=== PATIENT | female | born 1970 | race Caucasian/White ===

== ENCOUNTER 2016-11-15 14:45 | Inpatient (IN) | payer OTHER ==
[~2016-11-15] VITALS: Ht 154.9 cm; Wt 88.8 kg
[~2016-11-15 14:45] MED LIST: AMLO5 PO; ASPI1TAB69 PO; ATOR1TAB18 PO; AZEL0.05 EACH EYE; AZEL0.055 EACH NARE; AZEL1SPR2 EACH NARE; CYCL5TAB PO; LEXA20TA PO; LORA-474 PO; MONT10TA2 PO; OMEP20TA PO; PLAV75TA29 PO; ROBA500T PO; VENTAER INH
[2016-11-15 15:00] VITALS: BP 118/85; PULSE 78; RESP 20; TEMP 97.6; O2SAT 100
--- NOTE | 2016-11-15 15:51 | PD ---
HPI Chief Complaint: Cold / Flu Symptoms Time Seen by Provider: 15:51 Travel History International Travel<30 days: No Contact w/Intl Traveler<30days: No Traveled to known affect area: No History of Present Illness HPI 46-year-old female with a history of hypertension, hyperlipidemia, asthma, CAD with stent 1 presents to the emergency department for evaluation of chest pain , body aches and nausea. The patient states that for the past week she's had intermittent midsternal chest pain that radiates to underneath her left axilla. States that the pain is aggravated with movement and exertion. Alleviated with rest. States there is some associated shortness of breath. States that the last several days she has also had some nausea, body aches and subjective fever and chills. Denies any lightheadedness, dizziness, vomiting, diarrhea, constipation, abdominal pain, cough. States that she saw her doctor last week and told him that she was having the symptoms and she has been scheduled for an outpatient nuclear stress test tomorrow. States that she came in today because she was feeling poorly overall and became concerned as her symptoms feel similar to the last time she had an NC. Numerical Control Tool Programmer is Dr. fisher. No other complaints. PFSH Past Medical History Asthma: Yes Depression: Yes Cardiovascular Problems: Yes Coronary Artery Disease: Yes Diminished Hearing: No GERD: Yes Hypertension: Yes Respiratory: Yes (ASTHMA) Influenza Vaccination: No ?: Not : 4 Para: 4 Miscarriage: 0 : 0 Ovarian Cysts: Yes Tubal Ligation: Yes (2000) Past Surgical History Abdominal Surgery: Yes (umbilical hernia repair, abdominal aortic mass biopsy ( 2011)) Appendectomy: Yes (2007) Cholecystectomy: Yes Hysterectomy: Yes (partial ) Social History Alcohol Use: Yes (occasionally ) Tobacco Use: No Substance Use: No Allergies-Medications (Allergen,Severity, Reaction): Coded Allergies: No Known Allergies (Verified , 11/15/16) Reported Meds & Prescriptions Reported Meds & Active Scripts Active Ativan (Lorazepam) 1 Mg Tab 1 Mg PO Q6H PRN Lexapro (Escitalopram Oxalate) 20 Mg Tab 20 Mg PO DAILY Omeprazole 20 Mg Tab 20 Mg PO DAILY Singulair (Montelukast Sodium) 10 Mg Tab 10 Mg PO DAILY Reported Plavix (Clopidogrel Bisulfate) 75 Mg Tab 75 Mg PO DAILY Norvasc (Amlodipine Besylate) 5 Mg Tab 5 Mg PO DAILY Atorvastatin (Atorvastatin Calcium) 80 Mg Tab 40 Mg PO HS Aspirin 81 Mg Tabdr 162 Mg PO DAILY Review of Systems Except as stated in HPI: all other systems reviewed are Neg Physical Exam Narrative GENERAL: Well-nourished and well-developed pleasant female patient in no acute distress who is nontoxic appearing. SKIN: Warm and dry. HEAD: Normocephalic and atraumatic. EYES: No injection, drainage, or hyphema noted. PERRLA. EOMI. ENT: No nasal drainage noted. Oropharynx is clear and the TMs are normal with good landmarks. NECK: Supple and the trachea is midline. CARDIOVASCULAR: Regular rate and rhythm. RESPIRATORY: Breath sounds are equal bilaterally with no accessory muscle use, wheezing, rhonchi, or crackles. GASTROINTESTINAL: Abdomen is soft, non-tender, and nondistended. MUSCULOSKELETAL: No obvious deformities, swelling, cyanosis, or ecchymosis is present throughout the upper and lower extremities. Patient has full range of motion without any signs of neurovascular compromise. NEUROLOGICAL: Awake, alert, and oriented. Normal speech and gait. Cranial nerves are grossly intact. Data Data Last Documented VS Vital Signs Date Time Temp Pulse Resp B/P Pulse Ox O2 Delivery O2 Flow Rate FiO2 11/15/16 17:30 81 11/15/16 17:28 18 112/70 99 Room Air 11/15/16 15:00 97.6 Orders Electrocardiogram (11/15/16 15:50) Ckmb (Isoenzyme) Profile (11/15/16 15:50) Complete Blood Count With Diff (11/15/16 15:50) Comprehensive Metabolic Panel (11/15/16 15:50) Magnesium (Mg) (11/15/16 15:50) Prothrombin Time / Inr (Pt) (11/15/16 15:50) Act Partial Throm Time (Ptt) (11/15/16 15:50) Troponin I (11/15/16 15:50) Lipase (11/15/16 15:50) Chest, Single Ap (11/15/16 15:50) Ecg Monitoring (11/15/16 15:50) Iv Access Insert/Monitor (11/15/16 15:50) Oximetry (11/15/16 15:50) Sodium Chloride 0.9% Flush (Ns Flush) (11/15/16 16:00) Influenzae A/B Antigen (11/15/16 15:55) CKMB (11/15/16 16:00) CKMB% (11/15/16 16:00) Heparin Infusion JARAD.Q1H (11/15/16 17:04) Heparin Inj (Heparin Inj) (11/15/16 17:15) Heparin Inj (Heparin Inj) (11/15/16 23:15) Heparin Inj (Heparin Inj) (11/15/16 23:15) Heparin-D5w Inj (Heparin-D5w Inj) (11/15/16 17:15) Cbc No Diff, Includes Plts (11/18/16 06:00) Act Partial Throm Time (Ptt) (11/16/16 00:04) Occult Blood (Hemoccult) Stool (11/15/16 17:04) Consent (11/15/16 17:42) Teaching Record: Cardiac Educa JARAD.Q12H (11/15/16 17:42) ^ Preps (11/15/16 17:42) ^ Preps (11/15/16 17:42) Bedside Glucose .Prior to procedure (11/15/16 17:42) ^ Insert Iv (11/15/16 17:42) ^ Medication Alert (11/15/16 17:42) Diet Npo Except Meds (11/16/16 Breakfast) Engineer Technician / Telemetry JARAD.Q8H (11/15/16 17:42) Admit Order (Ed Use Only) (11/15/16 18:09) Labs Laboratory Tests Test 11/15/16 16:00 White Blood Count 4.6 TH/MM3 Red Blood Count 4.80 MIL/MM3 Hemoglobin 12.7 GM/DL Hematocrit 39.0 % Mean Corpuscular Volume 81.3 FL Mean Corpuscular Hemoglobin 26.6 PG Mean Corpuscular Hemoglobin 32.7 % Concent Red Cell Distribution Width 13.4 % Platelet Count 235 TH/MM3 Mean Platelet Volume 7.6 FL Neutrophils (%) (Auto) 58.2 % Lymphocytes (%) (Auto) 30.1 % Monocytes (%) (Auto) 8.9 % Eosinophils (%) (Auto) 2.2 % Basophils (%) (Auto) 0.6 % Neutrophils # (Auto) 2.7 TH/MM3 Lymphocytes # (Auto) 1.4 TH/MM3 Monocytes # (Auto) 0.4 TH/MM3 Eosinophils # (Auto) 0.1 TH/MM3 Basophils # (Auto) 0.0 TH/MM3 CBC Comment DIFF FINAL Differential Comment Prothrombin Time 10.7 SEC Prothromb Time International 1.0 RATIO Ratio Activated Partial 23.6 SEC Thromboplast Time Sodium Level 142 MEQ/L Potassium Level 3.9 MEQ/L Chloride Level 108 MEQ/L Carbon Dioxide Level 25.1 MEQ/L Anion Gap 9 MEQ/L Blood Urea Nitrogen 10 MG/DL Creatinine 0.81 MG/DL Estimat Glomerular Filtration 76 ML/MIN Rate Random Glucose 92 MG/DL Calcium Level 8.3 MG/DL Magnesium Level 2.1 MG/DL Total Bilirubin 0.2 MG/DL Aspartate Amino Transf 17 U/L (AST/SGOT) Alanine Aminotransferase 26 U/L (ALT/SGPT) Alkaline Phosphatase 84 U/L Total Creatine Kinase 121 U/L Creatine Kinase MB 0.9 NG/ML Troponin I LESS THAN 0.02 NG/ML Total Protein 7.1 GM/DL Albumin 3.5 GM/DL Lipase 136 U/L MDM Medical Decision Making Medical Screen Exam Complete: Yes Emergency Medical Condition: Yes Differential Diagnosis ACS versus stable angina versus pleurisy versus influenza versus viral illness versus anxiety Narrative Course 46-year-old female presents to the emergency department for evaluation of chest pain, body aches and nausea. Patient is afebrile, vital signs are stable. Physical examination is unremarkable. Her chest pain occurs with exertion and improves with rest. I did review the EMR which shows she was seen one week ago by the [facility] and was having the symptoms at that time as well. They spoke with the patient's recovery advocate Dr. fisher and got her scheduled for a nuclear medicine stress test tomorrow. IV access was obtained, labs were drawn and sent. Patient is placed on cardiac telemetry and pulse oximetry monitoring. EKG shows normal sinus rhythm with no acute ST elevations or depressions, there is a prolonged QT interval 442. CBC is unremarkable. CMP is unremarkable. Troponin is less than 0.02. Coags are unremarkable. Chest x-ray is negative for any acute abnormalities. Influenza swab is negative. After discussion with the patient's recovery advocate she'll be admitted to medicine service and will undergo cardiac catheterization tomorrow. She is placed on Heparin drip and will be transferred to the main hospital. I discussed the case with my attending physician Dr. David who is aware of the patients history, physical examination findings, and treatment plan. Physician Communication Physician Communication I spoke with Dr. Fisher recovery advocate who requests patient be placed on Heparin drip, transferred to [facility] and will undergo cardiac catheterization tomorrow. I spoke with Dr. Mcdonald family practice resident who agrees to admit the patient to Dr. Oliver's service. Diagnosis Primary Impression: Exertional angina Admitting Information Admitting Physician Requests: Admit Carine Giraldo Nov 15, 2016 15:51
[2016-11-15] MEDS ORDERED: SODIUM CHLORIDE 0.9% FLUSH 10 ML FLUSH IVF PRN (16:00)
[2016-11-15 16:08] LABS: AUTOMATED NEUTROPHIL # 2.7 TH/MM3 (1.8-7.7); BASOPHIL % 0.6 % (0.0-2.0); EOSINOPHIL # 0.1 TH/MM3 (0-0.4); EOSINOPHIL % 2.2 % (0.0-4.0); HEMO FLAGS DIFF FINAL; LYMPH % 30.1 % (9.0-44.0); LYMPHOCYTE # 1.4 TH/MM3 (1.0-4.8); MEAN CELL VOLUME 81.3 FL (80.0-100.0); MEAN CORPUSCULAR HEMOGLOBIN 26.6 PG (27.0-34.0); MEAN CORPUSCULAR HGB CONC 32.7 % (32.0-36.0); MONO % 8.9 % (0.0-8.0); NEUT % 58.2 % (16.0-70.0); PLATELET COUNT 235 TH/MM3 (150-450); RED CELL DISTRIBUTION WIDTH 13.4 % (11.6-17.2); WHITE BLOOD COUNT 4.6 TH/MM3 (4.0-11.0)
[2016-11-15 16:13] VITALS: BP 119/64; PULSE 74; RESP 18; O2SAT 98
[2016-11-15 16:23] LABS: CHLORIDE 108 MEQ/L (98-107); POTASSIUM 3.9 MEQ/L (3.5-5.1); SODIUM (NA) 142 MEQ/L (136-145)
[2016-11-15 16:27] LABS: ANION GAP 9 MEQ/L (5-15); BICARBONATE 25.1 MEQ/L (21.0-32.0); BLOOD UREA NITROGEN 10 MG/DL (7-18); MAGNESIUM 2.1 MG/DL (1.5-2.5)
[2016-11-15 16:30] LABS: ALT (GPT) 26 U/L (10-53); AST (GOT) 17 U/L (15-37); GLOMERULAR FILTRATION RATE 76 ML/MIN (>89)
[2016-11-15 16:31] LABS: TOTAL BILIRUBIN ADULT 0.2 MG/DL (0.2-1.0)
[2016-11-15 16:33] LABS: ALKALINE PHOSPHATASE 84 U/L (45-117); APTT (PATIENT) 23.6 SEC (24.3-30.1); CREATINE KINASE 121 U/L (26-192); PROTHROMBIN TIME - PATIENT 10.7 SEC (9.8-11.6)
--- NOTE | 2016-11-15 16:40 | RADHPO ---
EXAM DATE/TIME: 11/15/2016 16:18 [facility] COMPARISON: CHEST SINGLE AP, December 13, 2015, 14:51. INDICATIONS : Chest pain and shortness of breath. MEDICAL HISTORY : Hypertension. Asthma. Coronary artery disease. SURGICAL HISTORY : Hysterectomy. Tubal ligation. Cardiac stent. ENCOUNTER: Initial ACUITY: 1 week PAIN SCORE: 9/10 LOCATION: Left chest FINDINGS: A single view of the chest demonstrates the lungs to be symmetrically aerated without evidence of mas s, infiltrate or effusion. The cardiomediastinal contours are unremarkable. Osseous structures are intact. CONCLUSION: Normal examination. Wisam Zavala MD on November 15, 2016 at 16:38 Board Certified Radiologist. This report was verified electronically.
[2016-11-15 16:45] LABS: CKMB 0.9 NG/ML (0.5-3.6)
[2016-11-15] MEDS ORDERED: HEPARIN SODIUM - IV 10,000 UNITS/10 ML VIAL IV ONE (17:15)
[2016-11-15] MEDS ORDERED: HEPARIN-D5W INJ 250 ML IV SCH (17:15)
[2016-11-15 17:28] VITALS: BP 112/70; PULSE 83; RESP 18; O2SAT 99
[2016-11-15 19:49] VITALS: BP 141/76; PULSE 76; RESP 16; O2SAT 98
[2016-11-15 21:56] VITALS: BP 121/72; PULSE 76; RESP 16; O2SAT 97
[2016-11-15 23:00] VITALS: BP 144/82; PULSE 72; PULSE 80; RESP 16; TEMP 98.7; O2SAT 99
--- NOTE | 2016-11-15 23:03 | EKG ---
Date Performed: 11/15/2016 Time Performed: 16:04:08 PTAGE: 46 years EKG: Sinus rhythm Prolonged QT interval Borderline ECG PREVIOUS TRACING : 12/13/2015 14.34 DOCTOR: Manpreet Garcia Interpretating Date/Time 11/15/2016 23:02:19
[2016-11-15] MEDS ORDERED: HEPARIN SODIUM - IV 10,000 UNITS/10 ML VIAL IV PRN ×2 (23:15)
[2016-11-15] MEDS ORDERED: SODIUM CHLOR 0.45% 1000 ML INJ 1,000 ML IV SCH (23:44)
[2016-11-15] MEDS ORDERED: MORPHINE SULFATE 4 MG/ML INJ IV PUSH PRN (23:45)
[2016-11-15] MEDS ORDERED: ZOLPIDEM TARTRATE 5 MG TAB PO PRN (23:45)
[2016-11-15] MEDS ORDERED: ACETAMINOPHEN/HYDROcodone 325 MG/5 MG TAB PO PRN (23:45)
[2016-11-15] MEDS ORDERED: NALOXONE HCL 0.4 MG/ML AMP IV PRN (23:45)
[2016-11-15] MEDS ORDERED: ONDANSETRON HCL 4 MG/2 ML VIAL IVP PRN (23:45)
[2016-11-15] MEDS ORDERED: SODIUM CHLORIDE 0.9% FLUSH 10 ML FLUSH IV FLUSH PRN (23:45)
[2016-11-16] VITALS (12 sets, daily range): BP systolic 110–131; BP diastolic 63–76; PULSE 65–74; RESP 16–18; TEMP 97.9–98.2; O2SAT 97–99
[2016-11-16] MEDS ORDERED: LORazepam 1 MG TAB PO PRN
[2016-11-16] MEDS ORDERED: hydrALAZINE HCL 20 MG/ML VIAL IV PRN
[2016-11-16] MEDS: ACETAMINOPHEN 325 MG TAB PO PRN ×2 (00:23→08:58)
--- NOTE | 2016-11-16 00:33 | HHI.HP ---
[facility] Service Family Medicine Primary Care Physician Bam Momin MD Admission Diagnosis Exertional Angina Diagnoses: International Travel<30 Days: No Contact w/Intl Traveler<30days: No Known Affected Area: No History of Present Illness This is a 46-year-old female with past medical history significant for CAD with stent 1, hyperlipidemia, hypertension, and asthma. Today (11/15/16 ) she was traveling to and from [place] when she was not feeling well. She was feeling feverish and some nausea but no vomiting. Then she started to go for a walk with her friend and started noticing worsening chest pressure. The chest pressure was relieved with rest but this was concerning enough that she decided to go to the hospital for further evaluation. She says that for the last week she has been complaining of chest pressure with numbness and pain radiating into her left arm. She admits to feeling of fullness in her upper extremities during this week as well. When the chest pressure is at its worst she notices some shortness of breath, otherwise denied any other episodes of shortness of breath. She has been closely followed by her PCP Dr. Momin, and presented these symptoms to him earlier this week. She had been set up with her stone grader Dr. Sherman for a nuclear stress test scheduled for 11/16/16. However due to the worsening of her symptoms and exertional chest pressure she decided to come be evaluated sooner. (Marty Mcdonald MD R2) Review of Systems Constitutional: COMPLAINS OF: Fatigue, Fever, Chills, DENIES: Weight gain, Weight loss, Dizziness, Change in appetite Eyes: DENIES: Blurred vision, Vision loss, Double Vision Ears, nose, mouth, throat: DENIES: Nasal discharge, Throat pain, Hoarseness, Running Nose, Sinus Pain Respiratory: COMPLAINS OF: Cough, Shortness of breath, DENIES: Wheezing, Sputum production Cardiovascular: COMPLAINS OF: Chest pain, Dyspnea on Exertion, DENIES: Palpitations, Syncope, Lower Extremity Edema, Orthopnea, Claudication Gastrointestinal: COMPLAINS OF: Nausea, DENIES: Abdominal pain, Black stools, Bloody stools, Diarrhea, Vomiting Genitourinary: DENIES: Urinary frequency, Urinary incontinence Musculoskeletal: DENIES: Joint pain, Muscle aches, Stiffness, Joint Swelling, Back pain Hematologic/lymphatic: DENIES: Bruising Neurologic: COMPLAINS OF: Headache, DENIES: Abnormal gait, Seizures, Speech Problems, Tremor, Poor Balance Psychiatric: DENIES: Anxiety, Depression (Marty Mcdonald MD R2) Past Family Social History Past Medical History CAD stent 1 Hyperlipidemia Hypertension Asthma Past Surgical History Hysterectomy 2004 (has left ovary) for prolapsed uterus Appendectomy 2007 Biopsy retroperitoneal mass Hernia repair/Cholecystectomy 2012 Reported Medications Reported Meds & Active Scripts Active Ativan (Lorazepam) 1 Mg Tab 1 Mg PO Q6H PRN Lexapro (Escitalopram Oxalate) 20 Mg Tab 20 Mg PO DAILY Omeprazole 20 Mg Tab 20 Mg PO DAILY Singulair (Montelukast Sodium) 10 Mg Tab 10 Mg PO DAILY Reported Plavix (Clopidogrel Bisulfate) 75 Mg Tab 75 Mg PO DAILY Norvasc (Amlodipine Besylate) 5 Mg Tab 5 Mg PO DAILY Atorvastatin (Atorvastatin Calcium) 80 Mg Tab 40 Mg PO HS Aspirin 81 Mg Tabdr 162 Mg PO DAILY (Marty Mcdonald MD R2) Allergies: Coded Allergies: No Known Allergies (Verified , 11/15/16) Active Ordered Medications Current Medications Medications (Trade) Dose Ordered Sig/Shamir Route Start Time Stop Time Status Last Admin (NS Flush) 2 ml UNSCH PRN IVF 11/15/16 16:00 11/15/16 16:06 (Heparin Inj) 5,000 units UNSCH PRN IV 11/15/16 23:15 Heparin Sodium (Porcine) 2500 units 2,500 units UNSCH PRN IV 11/15/16 23:15 Heparin Sodium/ Dextrose 250 ml @ 0 mls/hr TITRATE IV 11/15/16 17:15 11/15/16 17:26 (1/2 NS 1000 ml Inj) 1,000 ml @ 75 mls/hr [id number] IV 11/15/16 23:44 (NS Flush) 2 ml UNSCH PRN IV FLUSH 11/15/16 23:45 (NS Flush) 2 ml BID IV FLUSH 11/16/16 09:00 (Tylenol) 650 mg Q4H PRN PO 11/15/16 23:45 (Zofran Inj) 4 mg Q6H PRN IVP 11/15/16 23:45 (Narcan Inj) 0.4 mg UNSCH PRN IV 11/15/16 23:45 ([place] 5-325 Mg) 1 tab Q6H PRN PO 11/15/16 23:45 (Morphine Inj) 2 mg Q3H PRN IV PUSH 11/15/16 23:45 (Norvasc) 5 mg DAILY PO 11/16/16 09:00 (Ecotrin Ec) 162 mg DAILY PO 11/16/16 09:00 (Lipitor) 40 mg HS PO 11/16/16 21:00 (Lexapro) 20 mg DAILY PO 11/16/16 09:00 (Ativan) 1 mg Q6H PRN PO 11/16/16 00:00 (Singulair) 10 mg DAILY PO 11/16/16 09:00 (Apresoline Inj) 10 mg Q6H PRN IV 11/16/16 00:00 (Protonix) 20 mg DAILY PO 11/15/16 09:00 Family History Father - , unknown reason Mother - healthy Siblings - 5 siblings, healthy Children - 4 children, healthy Social History Lives with 15 year old son and . Works at [employer]. Finished High School. Dog and 2 cats at home. Allergic to dogs. Smoking - Denies Alcohol - 2-3 glasses every night Drugs - Denies (Marty Mcdonald MD R2) Physical Exam Vital Signs Vital Signs Date Time Temp Pulse Resp B/P Pulse Ox O2 Delivery O2 Flow Rate FiO2 11/15/16 21:56 76 16 121/72 97 Room Air 11/15/16 19:49 76 16 141/76 98 Room Air 11/15/16 17:30 81 11/15/16 17:28 83 18 112/70 99 Room Air 11/15/16 16:13 74 18 119/64 98 11/15/16 15:00 97.6 78 20 118/85 100 Physical Exam GENERAL: This is a well-nourished, well-developed patient, obese female in no apparent distress. SKIN: No rashes, ecchymoses or lesions. Cool and dry. HEAD: Atraumatic. Normocephalic. No temporal or scalp tenderness. EYES: Pupils equal round and reactive. Extraocular motions intact. No scleral icterus. No injection or drainage. ENT: Nose without bleeding, purulent drainage or septal hematoma. Throat without erythema, tonsillar hypertrophy or exudate. Uvula midline. Airway patent. NECK: Trachea midline. No JVD or lymphadenopathy. Supple, nontender, no meningeal signs. CARDIOVASCULAR: Regular rate and rhythm without murmurs, gallops, or rubs. RESPIRATORY: Clear to auscultation. Breath sounds equal bilaterally. No wheezes , rales, or rhonchi. GASTROINTESTINAL: Abdomen soft, non-tender, nondistended. No hepato-splenomegaly , or palpable masses. No guarding. MUSCULOSKELETAL: Extremities without clubbing, cyanosis, or edema. No joint tenderness, effusion, or edema noted. No calf tenderness. Negative Homans sign bilaterally. Able to elicit some tenderness to palpation of chest NEUROLOGICAL: Awake and alert. Cranial nerves II through XII grossly. Full range of motion in all extremities. Normal speech. Laboratory Laboratory Tests Test 11/15/16 16:00 White Blood Count 4.6 Red Blood Count 4.80 Hemoglobin 12.7 Hematocrit 39.0 Mean Corpuscular Volume 81.3 Mean Corpuscular Hemoglobin 26.6 Mean Corpuscular Hemoglobin 32.7 Concent Red Cell Distribution Width 13.4 Platelet Count 235 Mean Platelet Volume 7.6 Neutrophils (%) (Auto) 58.2 Lymphocytes (%) (Auto) 30.1 Monocytes (%) (Auto) 8.9 Eosinophils (%) (Auto) 2.2 Basophils (%) (Auto) 0.6 Neutrophils # (Auto) 2.7 Lymphocytes # (Auto) 1.4 Monocytes # (Auto) 0.4 Eosinophils # (Auto) 0.1 Basophils # (Auto) 0.0 CBC Comment DIFF FINAL Differential Comment Prothrombin Time 10.7 Prothromb Time International 1.0 Ratio Activated Partial 23.6 Thromboplast Time Sodium Level 142 Potassium Level 3.9 Chloride Level 108 Carbon Dioxide Level 25.1 Anion Gap 9 Blood Urea Nitrogen 10 Creatinine 0.81 Estimat Glomerular Filtration 76 Rate Random Glucose 92 Calcium Level 8.3 Magnesium Level 2.1 Total Bilirubin 0.2 Aspartate Amino Transf 17 (AST/SGOT) Alanine Aminotransferase 26 (ALT/SGPT) Alkaline Phosphatase 84 Total Creatine Kinase 121 Creatine Kinase MB 0.9 Troponin I LESS THAN 0.02 Total Protein 7.1 Albumin 3.5 Lipase 136 Date/Time Procedure Status Source Growth 11/15/16 16:05 Influenza Types A,B Antigen (ARTI) - Final Complete Nasal Washing NEGATIVE FOR FLU A AND B ANTIGEN.... (Marty Mcdonald MD R2) Result Diagram: 11/15/16 1600 11/15/16 1600 Imaging Last Impressions Chest X-Ray 11/15/16 1550 Signed Impressions: Service Date/Time: November 16:18 - CONCLUSION: Normal examination. Wisam Zavala MD EKG sinus rhythm (Marty Mcdonald MD R2) Assessment and Plan Assessment and Plan This is a 46-year-old female with past medical history significant for CAD with stent 1, hyperlipidemia, hypertension, and asthma. She is being admitted for exertional angina with plans for cardiac catheterization scheduled for 11/16/16 Code Status Full code Discussed Condition With WDW: Medicine Team (Marty Mcdonald MD R2) Attending Attestation Patient seen, examined, and discussed with resident team. I agree with assessment and management as documented and discussed with me. Pt seen this morning at 0815. Case discussed with Dr Sherman. Lynn Chirinos is a 46yo lady with h/o CAD and cath with stent x 1 in the past admitted for chest pain on exertion. She was scheduled to have a stress test today, but presented yesterday to the ER due to worsening chest pain. Chest pain is described as Left anterior chest, radiates to left axilla. Worse with exertion but also occurs randomly. + occasional associated lightheadedness. No nausea, no SOB, no diaphoresis. + tenderness to palpation of sternum. Pt to go to cath today for evaluation per Dr Sherman. Updated this afternoon by Dr Sherman, who reported a clean cath. No stents needed. Pt safe for discharge from a cardiology standpoint. She has appt with [facility] physician (Dr Momin) in 2 weeks. Discharge home today. (Esthela Oliver MD) Problem List: (1) Exertional angina Status: Acute Plan: Patient is currently experiencing exertional angina. Anticipate cardiac catheterization. Wells criteria is 0. * Admit inpatient * Consulted cardiology, Dr. Sherman, recommendations appreciated * Heparin drip per protocol * Placed on telemetry * Troponins trending current troponin is less than 0.02 * Most recent EKG sinus rhythm * IV morphine for chest pain (2) Costochondritis Status: Acute Plan: Able to elicit some chest pain to palpation of the chest consistent with costochondritis. Patient denies this being the same feeling she gets when she is walking. * Tylenol 650 mg by mouth every 4 hours when necessary temperature, pain 1-6, headache * [place] 5/325 mg when necessary pain scale 7-10 (3) Asthma Status: Acute Plan: Long-standing history of asthma * Continue home medication of Singulair (4) Hyperlipemia Status: Acute Plan: Long-standing history of hyperlipidemia * Continue home medication of atorvastatin (5) Hypertension Status: Acute Plan: Long-standing history of hypertension * Continue Amlodipine 5 mg by mouth daily * Hydralazine 10 mg IV every 6 hours when necessary SBP>180, DBP>100 (6) Nutrition, metabolism, and development symptoms Status: Acute Plan: Diet: Nothing by mouth Monitor electrolytes replace accordingly IV fluids at 75 MLS per hour DVT prophylaxis: Currently on heparin drip Out of bed ad jey. Vitals every 4 CODE STATUS: Full code Disposition: Pending results of cardiac catheterization (Marty Mcdonald MD R2) Physician Certification 2 Midnight Certification Type: Admission for Inpatient Services Order for Inpatient Services The services are ordered in accordance with Medicare regulations or non- Medicare payer requirements, as applicable. In the case of services not specified as inpatient-only, they are appropriately provided as inpatient services in accordance with the 2-midnight benchmark. Estimated LOS (days): 3 days is the estimated time the patient will need to remain in the hospital, assuming treatment plan goals are met and no additional complications. Post-Hospital Plan: Home (Marty Mcdonald MD R2) Marty Mcdonald MD R2 Nov 16, 2016 00:33 Esthela Oliver MD Nov 16, 2016 21:37
[2016-11-16 01:24] LABS: APTT (PATIENT) 51.5 SEC (24.3-30.1)
[2016-11-16 06:29] LABS: AUTOMATED NEUTROPHIL # 2.1 TH/MM3 (1.8-7.7); BASOPHIL % 0.5 % (0.0-2.0); EOSINOPHIL # 0.1 TH/MM3 (0-0.4); EOSINOPHIL % 2.3 % (0.0-4.0); HEMATOCRIT 36.6 % (35.0-46.0); HEMO FLAGS DIFF FINAL; LYMPH % 43.5 % (9.0-44.0); MEAN CELL VOLUME 80.5 FL (80.0-100.0); MEAN CORPUSCULAR HEMOGLOBIN 26.5 PG (27.0-34.0); MEAN CORPUSCULAR HGB CONC 32.9 % (32.0-36.0); MONO % 9.9 % (0.0-8.0); NEUT % 43.8 % (16.0-70.0); PLATELET COUNT 206 TH/MM3 (150-450); RED BLOOD COUNT 4.54 MIL/MM3 (4.00-5.30); RED CELL DISTRIBUTION WIDTH 14.4 % (11.6-17.2); WHITE BLOOD COUNT 4.7 TH/MM3 (4.0-11.0)
[2016-11-16 06:52] LABS: ANION GAP 8 MEQ/L (5-15); AST (GOT) 17 U/L (15-37); BICARBONATE 23.2 MEQ/L (21.0-32.0); BLOOD UREA NITROGEN 7 MG/DL (7-18); CHLORIDE 110 MEQ/L (98-107); GLOMERULAR FILTRATION RATE 91 ML/MIN (>89); POTASSIUM 3.9 MEQ/L (3.5-5.1); SODIUM (NA) 141 MEQ/L (136-145)
[2016-11-16 06:56] LABS: ALKALINE PHOSPHATASE 75 U/L (45-117); ALT (GPT) 22 U/L (10-53); TOTAL BILIRUBIN ADULT 0.3 MG/DL (0.2-1.0)
[2016-11-16] MEDS: PANTOPRAZOLE SOD 20 MG DELAYED RELEASE TAB PO SCH ×2 (08:54→09:01)
[2016-11-16] MEDS ORDERED: amLODIPine BESYLATE 5 MG TAB PO SCH (09:00)
[2016-11-16] MEDS ORDERED: MONTELUKAST SODIUM 10 MG TAB PO SCH (09:00)
[2016-11-16] MEDS ORDERED: ESCITALOPRAM OXALATE 20 MG TAB PO SCH (09:00)
[2016-11-16] MEDS ORDERED: ASPIRIN EC 81 MG TABEC PO SCH (09:00)
[2016-11-16] MEDS ORDERED: NON-FORMULARY DRUG (Omeprazole 20 MG) PO SCH (09:00)
[2016-11-16] MEDS ORDERED: SODIUM CHLORIDE 0.9% FLUSH 10 ML FLUSH IV FLUSH SCH (09:00)
--- NOTE | 2016-11-16 10:08 | MB ---
cc: ELIE LUQUE DATE OF CONSULTATION 11/16/2016 INDICATION Unstable angina. HISTORY OF PRESENT ILLNESS This is a very nice 46-year-old female. She has a known history of prior percutaneous intervention back in December of 2015 at [facility]. She received with drug-eluting stent to the proximal left anterior descending coronary artery. She had see me in the office in early October. At that point, she was seen to be doing fairly well. She did have some rather atypical type chest pain symptoms which we were managing conservatively. Then while traveling back from [place] earlier in the week, she developed chest pain with associated shortness of breath and with some radiation to the left arm. She had seen her primary care doc/resident who discussed the case with me. She was then scheduled for stress test today in our office. Prior to the stress test, she developed again recurrent chest pain, came into the emergency department in [place]. Given her progressive symptoms, we elected to skip the stress test a proceed with cardiac catheterization. She was transferred over from [place] emergency department for consideration of cardiac catheterization. PAST MEDICAL HISTORY 1. Coronary disease status post percutaneous intervention 2. Hyperlipidemia 3. Hypertension 4. Asthma MEDICATIONS Home medications include 1. Plavix 2. Norvasc 3. Atorvastatin 4. Aspirin ALLERGIES NO KNOWN DRUG ALLERGIES. SOCIAL HISTORY Denies any alcohol, tobacco or drug use. FAMILY HISTORY Denies any family history of early cardiac disease or sudden cardiac . PHYSICAL EXAMINATION VITAL SIGNS: Temperature is 97, pulse is 65, blood pressure 131/75 mmHg. GENERAL: Alert and oriented x3 in no acute distress. HEENT: Exam shows pupils reactive to light and accommodation. Extraocular movements are intact. NECK: No elevation in jugular venous distension. No thyromegaly, no lymphadenopathy, no carotid bruits. LUNGS: Clear to auscultation bilaterally. CARDIOVASCULAR: Regular rate and rhythm without murmurs, rubs or gallops. ABDOMEN: Exam is nontender, nondistended. Good bowel sounds. No hepatosplenomegaly. EXTREMITIES: Show no clubbing, cyanosis or edema. Good peripheral pulses. NEUROLOGIC: Cranial nerves intact. Motor and sensory grossly intact. LABORATORY DATA WBC 4.7, hemoglobin was 12, platelet counts 206. Sodium 141, potassium 3.9, BUN 7, creatinine 0.69, troponins negative. Electrocardiogram sinus rhythm, no significant ischemic changes. ASSESSMENT 1. Unstable angina 2. History of coronary disease. 3. Hypertension/hyperlipidemia PLAN Given her prior history of known coronary disease and percutaneous intervention with rather suggestive recurrent symptoms and progression requiring hospitalization, we felt it would be more appropriate to proceed directly with cardiac catheterization. We will plan for heart cath later this morning. She will stay n.p.o. We will continue with aggressive risk factor risk factor management. MD LITZY Pineda/KRISTA /7:59 AM /10:01 AM
[2016-11-16] MEDS ORDERED: HEPARIN-NS/PF INJ 500 ML ONE (11:06)
[2016-11-16] MEDS ORDERED: HEPARIN SODIUM - IV 10,000 UNITS/10 ML VIAL ONE (11:06)
[2016-11-16] MEDS ORDERED: NITROGLYCERIN INJ 5 ML ONE (11:07)
[2016-11-16] MEDS ORDERED: MIDAZOLAM HCL 2 MG/2 ML VIAL ONE ×2 (11:07→11:45)
[2016-11-16] MEDS ORDERED: MISC INFORMATION XX ONE (12:15)
[2016-11-16] MEDS ORDERED: BACITRACIN OINT 0.9 GM PKT TOP ONE (12:15)
[2016-11-16] MEDS ORDERED: ISOS30TA3 PO (12:22)
--- NOTE | 2016-11-16 12:23 | HHI.DCPOC ---
Discharge Care Plan Diagnosis: (1) Costochondritis Goals to Promote Your Health * To prevent worsening of your condition and complications * To maintain your health at the optimal level Directions to Meet Your Goals Take your medications as prescribed Follow your dietary instruction Follow activity as directed Keep your appointments as scheduled Take your immunizations and boosters as scheduled If your symptoms worsen call your PCP, if no PCP go to Urgent Care Center or Emergency Room Smoking is Dangerous to Your Health. Avoid second hand smoke Call the 24-hour hour crisis hotline for domestic abuse at Michael Purvis MD R2 Nov 16, 2016 12:22
--- NOTE | 2016-11-16 13:38 | MA ---
cc: ELIE LUQUE DATE: 11/16/2016. PROCEDURE PERFORMED: 1. Fluoroscopy with interpretation. 2. Coronary angiography 3. Left heart catheterization. 4. Left ventriculography. 5. Pressure derived fractional flow reserve of the left anterior descending coronary artery. METHOD: Risks, alternatives and alternatives were discussed with the patient. The patient understood and consented to the procedure. DESCRIPTION OF THE PROCEDURE IN DETAIL: The patient was brought to the catheterization lab and placed on the catheterization table. Right wrist was prepped and draped in the usual sterile fashion. Right wrist was anesthetized with 2% lidocaine. Right radial artery was cannulated with a 6-Indonesian and a 7 cm sheath was placed without difficulty. LEFT HEART CATHETERIZATION: A 6-Indonesian JR-5 catheter was advanced across the aortic valve without difficulty. Intraoperative hemodynamics measured 113/13 mmHg. LEFT VENTRICULOGRAPHY: Left ventriculography was performed in the right anterior oblique view using a 6-Indonesian JR-5 catheter and 12 mL contrast injection with good opacification. Left ventricular ejection fraction visually estimated at 65% without regional wall motion abnormalities. CORONARY ANGIOGRAPHY: 1. Left main coronary is angiographically normal. 2. Left anterior descending coronary has a stent present in the proximal segment with 30% in-stent re-stenosis. The remainder of the left anterior descending and diagonal branch have mild luminal irregularities. 3. The left circumflex gives rise to an obtuse marginal branch and is angiographically normal. 4. The right coronary is a dominant vessel and gives rise to a posterior descending branch. The right coronary artery is angiographically normal. PRESSURE DERIVED FRACTIONAL FLOW RESERVE OF THE LEFT ANTERIOR DESCENDING CORONARY ARTERY: Given the patient's progressive symptoms, prior history of coronary disease and mild in-stent restenosis, we wanted to make 100% sure there was no hemodynamically significant obstruction. Therefore we elected to proceed with FFR. Heparin was administered throughout the entire procedure to maintain appropriate anticoagulation. The left coronary was selectively engaged with a 6-Indonesian XB LAD guide catheter. A 0.014 inch pressure wire was then calibrated. The wire was advanced into the left main and normalized. The wire was then put across the lesion and IFR performed. IFR was 0.93 which did not meet hemodynamic significance. The wire was removed. The guide catheter was removed. HemoBand applied. CONCLUSIONS: 1. Mild in-stent restenosis of the proximal left anterior descending coronary artery stent. 2. Normal left-sided filling pressure and left ventricular systolic function. PLAN: Symptoms are likely not cardiac in origin. Will add long-acting nitrate. If she continues to have symptoms, she will need to pursue noncardiac workup. She is okay for discharge later today. MD LITZY Pineda/DANIEL /12:10 PM /1:21 PM
[2016-11-16] MEDS ORDERED: IOHEXOL 350 MG/ML 100 ML BTL (for Cath Lab) OTHER ONE (16:44)
[2016-11-16] MEDS ORDERED: ATORVASTATIN 40 MG TAB PO SCH (21:00)
[2016-11-17] MEDS ORDERED: ISOSORBIDE MONONITRATE 30 MG TAB PO SCH (07:00)
[2016-12-12] MEDS ORDERED: AZEL0.05 EACH EYE (09:38)
[2016-12-12] MEDS ORDERED: MOME17I EACH NARE (09:38)
[2017-01-02] MEDS ORDERED: MONT10TA2 PO (13:31)
[2017-01-02] MEDS ORDERED: ATOR1TAB18 PO (13:31)
[2017-01-04] MEDS ORDERED: ATOR1TAB18 PO (11:50)
[2017-01-25] MEDS ORDERED: MEDR4PAK PO (15:49)
[2017-01-25] MEDS ORDERED: CYCL5TAB PO (15:49)
[2017-02-04] MEDS ORDERED: OMEP20TA PO (13:46)
== END 2016-11-16 16:45 | disposition home or self-care (01) | DRG 287 ==
LOC: PHEFT 14:45 → PHEDA 18:11 → HCIN 23:00
PROVIDERS: ADMIT Hospitalist; ATTEND Hospitalist
PROC: B2111ZZ Fluoroscopy of Multiple Coronary Arteries using Low Osmolar Contrast (ICD-10-PCS; 2016-11-16)
PROC: 4A023N7 Measurement of Cardiac Sampling and Pressure, Left Heart, Percutaneous Approach (ICD-10-PCS; 2016-11-16)
PROC: 4A033BC Measurement of Arterial Pressure, Coronary, Percutaneous Approach (ICD-10-PCS; 2016-11-16)
PROC: B2151ZZ Fluoroscopy of Left Heart using Low Osmolar Contrast (ICD-10-PCS; principal; 2016-11-16 09:15)
DX: R07.89 Other chest pain (principal); T82.855A Stenosis of coronary artery stent, initial encounter; I25.110 Atherosclerotic heart disease of native coronary artery with unstable angina pectoris; Y83.1 Surgical operation with implant of artificial internal device as the cause of abnormal reaction of the patient, or of later complication, without mention of misadventure at the time of the procedure; M94.0 Chondrocostal junction syndrome [Tietze]; J45.909 Unspecified asthma, uncomplicated; I10 Essential (primary) hypertension; E78.5 Hyperlipidemia, unspecified; Z79.02 Long term (current) use of antithrombotics/antiplatelets; Z79.82 Long term (current) use of aspirin
CPT/HCPCS: 71010; 80053; 82550; 82552; 83690; 83735; 84484; 85025; 85610; 85730; 87804; 92978; 93005; 93458; 96365; C1769; C1887; C1893; J1644; J2250; J3010; Q9967

== ENCOUNTER 2017-08-26 15:21 | Observation (INO) | payer OTHER ==
[2017-08-26 16:31] LABS: BASOPHIL % 0.3 % (0.0-2.0); EOSINOPHIL # 0.1 TH/MM3 (0-0.4); EOSINOPHIL % 3.1 % (0.0-4.0); HEMO FLAGS DIFF FINAL; HEMOGLOBIN 12.7 GM/DL (11.6-15.3); LYMPH % 38.1 % (9.0-44.0); LYMPHOCYTE # 1.6 TH/MM3 (1.0-4.8); MEAN CELL VOLUME 80.4 FL (80.0-100.0); MEAN CORPUSCULAR HEMOGLOBIN 25.5 PG (27.0-34.0); MEAN CORPUSCULAR HGB CONC 31.7 % (32.0-36.0); MEAN PLATELET VOLUME 7.8 FL (7.0-11.0); MONO % 9.7 % (0.0-8.0); MONOCYTE # 0.4 TH/MM3 (0-0.9); NEUT % 48.8 % (16.0-70.0); PLATELET COUNT 263 TH/MM3 (150-450); RED BLOOD COUNT 4.97 MIL/MM3 (4.00-5.30); RED CELL DISTRIBUTION WIDTH 16.7 % (11.6-17.2); WHITE BLOOD COUNT 4.1 TH/MM3 (4.0-11.0)
[2017-08-26 16:54] LABS: APTT (PATIENT) 24.3 SEC (24.3-30.1); PROTHROMBIN TIME - PATIENT 10.2 SEC (9.8-11.6)
[2017-08-26 16:57] LABS: ALBUMIN 3.7 GM/DL (3.4-5.0); ANION GAP 5 MEQ/L (5-15); AST (GOT) 20 U/L (15-37); BICARBONATE 29.8 MEQ/L (21.0-32.0); BLOOD UREA NITROGEN 11 MG/DL (7-18); CALCIUM 8.9 MG/DL (8.5-10.1); CHLORIDE 105 MEQ/L (98-107); CREATININE 0.96 MG/DL (0.50-1.00); GLOMERULAR FILTRATION RATE 62 ML/MIN (>89); GLUCOSE,RANDOM 91 MG/DL (74-106); MAGNESIUM 2.1 MG/DL (1.5-2.5); POTASSIUM 3.8 MEQ/L (3.5-5.1); SODIUM (NA) 140 MEQ/L (136-145)
[2017-08-26 16:58] LABS: ALT (GPT) 24 U/L (10-53)
[2017-08-26 17:02] LABS: ALKALINE PHOSPHATASE 87 U/L (45-117); CREATINE KINASE 157 U/L (26-192); TOTAL BILIRUBIN ADULT 0.2 MG/DL (0.2-1.0); TOTAL PROTEIN 7.6 GM/DL (6.4-8.2); TROPONIN I LESS THAN 0.02 NG/ML (0.02-0.05)
[2017-08-26 17:14] LABS: CKMB 1.2 NG/ML (0.5-3.6)
[2017-08-26] MEDS: MORPHINE SULFATE 2 MG/ML INJ IV PUSH (18:23)
[2017-08-26] MEDS: ASPIRIN 81 MG CHEW TAB CHEW (18:23)
[2017-08-26] MEDS ORDERED: SODIUM CHLORIDE 0.9% FLUSH 10 ML FLUSH IV FLUSH (19:15)
[2017-08-26 20:40] LABS: TROPONIN I LESS THAN 0.02 NG/ML (0.02-0.05)
[2017-08-26] MEDS ORDERED: ONDANSETRON HCL 4 MG/2 ML VIAL IV PUSH (22:15)
[2017-08-26] MEDS: ACETAMINOPHEN 500 MG CPLT PO (22:23)
[2017-08-26] MEDS: ALPRAZolam 0.25 MG TAB PO (22:23)
[2017-08-26] MEDS: SODIUM CHLORIDE 0.9% FLUSH 10 ML FLUSH IV FLUSH (22:24)
[2017-08-27 01:20] LABS: TROPONIN I LESS THAN 0.02 NG/ML (0.02-0.05)
[2017-08-27] MEDS ORDERED: NITROGLYCERIN 0.4 MG SL 25 TABS/BTL SL (07:30)
[2017-08-27] MEDS: SODIUM CHLORIDE 0.9% FLUSH 10 ML FLUSH IV FLUSH (09:40)
[2017-08-27] MEDS: ASPIRIN 325 MG TAB PO (09:40)
[2017-08-27] MEDS ORDERED: LANSOPRAZOLE 15 MG CAP PO (10:15)
[2017-08-27] MEDS: CLOPIDOGREL 75 MG TAB PO (10:15)
[2017-08-27] MEDS: amLODIPine BESYLATE 5 MG TAB PO (10:32)
[2017-08-27] MEDS: MONTELUKAST SODIUM 10 MG TAB PO (10:32)
[2017-08-27] MEDS: ESCITALOPRAM OXALATE 20 MG TAB PO (10:33)
[2017-08-27] MEDS ORDERED: ATORVASTATIN 80 MG TAB PO (21:00)
[2017-08-28] MEDS ORDERED: LANSOPRAZOLE SOLUTAB 15 MG TAB PO (09:00)
== END 2017-08-27 11:54 | disposition home or self-care (01) ==
LOC: NEPE 15:21 → NEDA 18:09 → NEPGCP 20:08
DX: R07.89 Other chest pain (principal); I25.10 Atherosclerotic heart disease of native coronary artery without angina pectoris; J01.90 Acute sinusitis, unspecified; I10 Essential (primary) hypertension; J45.909 Unspecified asthma, uncomplicated; R06.02 Shortness of breath; R94.31 Abnormal electrocardiogram [ECG] [EKG]; Z87.891 Personal history of nicotine dependence; Z95.5 Presence of coronary angioplasty implant and graft
CPT/HCPCS: 71046; 80053; 82550; 82552; 83735; 84484; 85025; 85610; 85730; 93005; 96374; 96376; 99285-25

== ENCOUNTER 2017-11-28 15:03 | Emergency (ER) | payer OTHER ==
[~2017-11-28] VITALS: Ht 154.9 cm; Wt 90.7 kg
[~2017-11-28 15:03] MED LIST changes: +AMOX875T2 PO; -ASPI1TAB69 PO; -ATOR1TAB18 PO; +ATOR80TA45 PO; -AZEL0.05 EACH EYE; -AZEL0.055 EACH NARE; -AZEL1SPR2 EACH NARE; -CYCL5TAB PO; +FLUT1SPR5 EACH NARE; +ISOS30TA3 PO; +LANS15CA PO; -LORA-474 PO; -OMEP20TA PO; -ROBA500T PO; -VENTAER INH
[2017-11-28 15:12] VITALS: BP 130/86; PULSE 100; RESP 16; TEMP 99.4; O2SAT 95
--- NOTE | 2017-11-28 15:56 | PD ---
HPI Chief Complaint: Back/ Neck Pain or Injury Time Seen by Provider: 15:16 Travel History International Travel<30 days: No Contact w/Intl Traveler<30days: No Traveled to known affect area: No History of Present Illness HPI This is a 47-year-old female here with low back pain 2 hours. 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 She did not fall to the ground. There was no head injury loss of consciousness. She remained standing during the entire event. She reports the event caused her to twist the torso causing back pain. She now has pain localized to the low back. No paresthesia or weakness of the extremities. No incontinence. No saddle anesthesia. Symptom severity is moderate. Aggravated by movement and relieved with rest. PFSH Past Medical History Asthma: Yes Depression: Yes Cardiovascular Problems: Yes (htn on meds) High Cholesterol: Yes Chest Pain: Yes Coronary Artery Disease: Yes Diminished Hearing: No Endocrine: No GERD: Yes Hypertension: Yes Musculoskeletal: No Neurologic: No Respiratory: Yes (ASTHMA) Immunizations Current: Yes Tetanus Vaccination: > 5 Years Influenza Vaccination: No ?: Not : 4 Para: 4 Miscarriage: 0 : 0 Ovarian Cysts: Yes Tubal Ligation: Yes (2000) Past Surgical History Abdominal Surgery: Yes (umbilical hernia repair, abdominal aortic mass biopsy ( 2011)) Appendectomy: Yes (2007) Cardiac Surgery: Yes (stent) Cholecystectomy: Yes Hysterectomy: Yes (partial) Other Surgery: Yes Social History Alcohol Use: Yes (occasionally ) Tobacco Use: No Substance Use: No Allergies-Medications (Allergen,Severity, Reaction): Coded Allergies: No Known Allergies (Verified Adverse Reaction, Unknown, 11/28/17) Reported Meds & Prescriptions Reported Meds & Active Scripts Active Flonase Nasal Nunez (Fluticasone Nasal Nunez) 50 Mcg/Act Nunez 50 Mcg EACH NARE BID Atorvastatin (Atorvastatin Calcium) 80 Mg Tab 80 Mg PO HS Lansoprazole 15 Mg Capdr 15 Mg PO DAILY Norvasc (Amlodipine Besylate) 5 Mg Tab 5 Mg PO DAILY Lexapro (Escitalopram Oxalate) 20 Mg Tab 20 Mg PO DAILY Singulair (Montelukast Sodium) 10 Mg Tab 10 Mg PO DAILY Isosorbide Mononitrate ER (Isosorbide Mononitrate) 30 Mg Alicia 30 Mg PO DAILY@07 Reported Plavix (Clopidogrel Bisulfate) 75 Mg Tab 75 Mg PO DAILY Review of Systems Except as stated in HPI: all other systems reviewed are Neg General / Constitutional: No: Fever Eyes: No: Visual changes HENT: No: Headaches Cardiovascular: No: Chest Pain or Discomfort Respiratory: No: Shortness of Breath Gastrointestinal: No: Abdominal Pain Physical Exam Narrative GENERAL: Alert and well-appearing 39-year-old female. SKIN: Warm and dry. HEAD: Normocephalic. EYES: No scleral icterus. No injection or drainage. NECK: Supple, trachea midline. No cervical midline tenderness. CARDIOVASCULAR: Regular rate and rhythm RESPIRATORY: Breath sounds equal bilaterally. No accessory muscle use. GASTROINTESTINAL: Abdomen soft, non-tender, nondistended. MUSCULOSKELETAL: No cyanosis, or edema. Normal strength and sensation in lower extremity's. 2+ DTRs. BACK: +TTP lumbar spine. No step-off deformity. No crepitus. Without obvious deformity. No CVA tenderness. Data Data Last Documented VS Vital Signs Date Time Temp Pulse Resp B/P (MAP) Pulse Ox O2 Delivery O2 Flow Rate FiO2 11/28/17 15:12 99.4 100 16 130/86 (101) 95 Orders Orders Spine, Lumbar Comp W/Obliq (11/28/17 ) MDM Medical Decision Making Medical Screen Exam Complete: Yes Emergency Medical Condition: Yes Differential Diagnosis Lumbar strain, lumbar fracture, herniated disc Narrative Course 47-year-old female with low back pain. She has a normal neurologic exam. X- ray lumbar spine no acute abnormality. Patient will be treated for lumbar strain. Diagnosis Primary Impression: Lumbar strain Qualified Codes: S39.012A - Strain of muscle, fascia and tendon of lower back , initial encounter Referrals: Primary Care Physician Additional Instructions: Tylenol as needed for pain. Ultram as needed for severe pain. Medication as directed. Avoid heavy lifting or strenuous activity. Follow up with her primary doctor. Scripts Tramadol (Ultram) 50 Mg Tab 50 MG PO Q6H Y for PAIN, #12 TAB 0 Refills Prov: Leana Erickson 11/28/17 Disposition: 01 DISCHARGE HOME Condition: Stable Leana Erickson Nov 28, 2017 15:56
--- NOTE | 2017-11-28 16:10 | RADRPT ---
EXAM DATE/TIME: 11/28/2017 15:41 [facility] COMPARISON: No previous studies available for comparison. INDICATIONS : Patient was knocked into a rack when a patient fell on to her. Pain in lower back. MEDICAL HISTORY : None. SURGICAL HISTORY : Coronary artery stent. Cholecystectomy. ENCOUNTER: Initial ACUITY: 1 day PAIN SCORE: 6/10 LOCATION: Bilateral L-spine FINDINGS: There are five non-rib bearing vertebral bodies. The vertebral bodies are in normal alignment withou t evidence of subluxation or scoliosis. The disc spaces are maintained. The posterior elements are intact without evidence of spondylolysis. The pedicles are intact. Bony mineralization is normal. No fracture is identified. Cholecystectomy clips CONCLUSION: There is irregularity involving the sacrococcygeal junction which is probably chronic. The lumbar spi ne itself is unremarkable. Wisam Zavala MD on November 28, 2017 at 16:06 Board Certified Radiologist. This report was verified electronically.
[2017-11-28] MEDS ORDERED: TRAM50 PO (16:20)
== END 2017-11-28 16:34 | disposition home or self-care (01) ==
LOC: PHEFT 15:03
DX: S39.012A Strain of muscle, fascia and tendon of lower back, initial encounter (principal); R55 Syncope and collapse; J45.909 Unspecified asthma, uncomplicated; F32.9 Major depressive disorder, single episode, unspecified; I10 Essential (primary) hypertension; E78.00 Pure hypercholesterolemia, unspecified; I25.10 Atherosclerotic heart disease of native coronary artery without angina pectoris; W19.XXXA Unspecified fall, initial encounter; Y92.512 Supermarket, store or market as the place of occurrence of the external cause
CPT/HCPCS: 72110; 99283

== ENCOUNTER 2018-06-09 14:30 | Observation (INO) ==
[2018-06-09] MEDS ORDERED: Aspirin 325 MG Tablet PO ONE (15:28)
[2018-06-09 15:37] LABS: Baso % (Auto) 0.9 % (0.0-2.0); Eos # (Auto) 0.1 th/mm3 (0.0-0.4); Eos % (Auto) 2.8 % (0.0-4.0); Hematocrit 37.5 % (35.0-46.0); Lymph # (Auto) 1.3 th/mm3 (1.0-4.8); Lymph % (Auto) 24.2 % (9.0-44.0); Mean Corpuscular Hemoglobin 25.5 pg (27.0-34.0); Mean Corpuscular Volume 79.6 fL (80.0-100.0); Mean Platelet Volume 8.1 fL (7.0-11.0); Mono # (Auto) 0.5 th/mm3 (0.0-0.9); Mono % (Auto) 9.8 % (0.0-8.0); Neut # (Auto) 3.4 th/mm3 (1.8-7.7); Neut % (Auto) 62.3 % (16.0-70.0); Platelet Count 250 th/mm3 (150-450); Red Cell Distribution Width 16.1 % (11.6-17.2); White Blood Count 5.3 th/mm3 (4.0-11.0)
--- NOTE | 2018-06-09 15:46 | ED ---
HPI General Chief Complaint: Chest Pain Stated Complaint: Chest Pain Time Seen by Provider: 06/09/18 15:11 History of Present Illness HPI narrative: Patient with a history of GERD, hypercholesterolemia, hypertension presents to the emergency department complaining of chest pain that started 1 hour ago. States she was taken a shower and the pain began. Pain described as being left-sided, intermittent, 2-3 seconds in duration, no aggravating factors, alleviated with rest, states she has had the same type of pain in the past and it was secondary to a heart blockage. advises that she was cathed 2 years ago [place] [address] 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 Dr. Sherman did a cath in November 2016. She is reporting subjective fever and chills, sweating, but denies shortness of breath or lower extremity edema or recent travel. She does not have any menstrual cycles anymore because she is status post hysterectomy. Patient had a cath November 16, 2016 which showed mild in-stent restenosis of the proximal LAD. EF at that time was 65%. Related Data Home Medications Medication Instructions Recorded Confirmed Aspir-81 81 mg PO DAILY 06/09/18 06/09/18 amlodipine 5 mg PO DAILY 06/09/18 06/09/18 atorvastatin 80 mg PO DAILY 06/09/18 06/09/18 clopidogrel 75 mg PO DAILY 06/09/18 06/09/18 escitalopram oxalate 20 mg PO DAILY 06/09/18 06/09/18 isosorbide mononitrate 30 mg PO DAILY 06/09/18 06/09/18 montelukast 10 mg PO QPM 06/09/18 06/09/18 omeprazole 20 mg PO DAILY 06/09/18 06/09/18 Allergies Allergy/AdvReac Type Severity Reaction Status Date / Time No Known Allergies Allergy Verified 06/09/18 14:47 Review of Systems ROS: all other systems reviewed are negative [facility] Medical History Medical History History of asthma (Acute) History of depression (Acute) History of gastroesophageal reflux (GERD) (Acute) History of high cholesterol (Acute) History of hypertension (Acute) Surgical History Surgical History History of appendectomy (Acute) History of cholecystectomy (Acute) History of heart artery stent (Acute) History of partial hysterectomy (Acute) History of repair of hiatal hernia (Acute) Social History Social History Substance History: No History of Abuse Smoking Status: Former smoker How Often Do You Have a Drink Containing Alcohol: Monthly or less Recent Travel in [facility] within the Last 8 Weeks: No Recent Out of Country Travel within the Last 8 Weeks: No Exam Narrative Exam Narrative: GENERAL: No acute distress. SKIN: Focused skin assessment warm/dry. HEAD: Atraumatic. Normocephalic. EYES: Pupils equal and round. No scleral icterus. No injection or drainage. ENT: No nasal bleeding or discharge. Mucous membranes pink and moist. NECK: Trachea midline. No JVD. CARDIOVASCULAR: Regular rate and rhythm. No murmur appreciated. RESPIRATORY: No accessory muscle use. Clear to auscultation. Breath sounds equal bilaterally. GASTROINTESTINAL: Abdomen soft, non-tender, nondistended. Hepatic and splenic margins not palpable. MUSCULOSKELETAL: No obvious deformities. No clubbing. No cyanosis. No edema. NEUROLOGICAL: Awake and alert. No obvious cranial nerve deficits. Motor grossly within normal limits. Normal speech. PSYCHIATRIC: Appropriate mood and affect; insight and judgment normal. Course Initial Documented Vital Signs Temperature 98.5 F 06/09/18 14:42 Pulse Rate 88 06/09/18 14:42 Respiratory Rate 20 06/09/18 14:42 Blood Pressure 143/85 H 06/09/18 14:42 Pulse Oximetry 98 06/09/18 14:42 Last Documented Vital Signs Temperature 98.5 F 06/09/18 14:42 Pulse Rate 73 06/09/18 15:50 Respiratory Rate 16 06/09/18 15:50 Blood Pressure 122/75 06/09/18 15:50 Pulse Oximetry 96 06/09/18 15:50 Medical Decision Making [facility] Narrative Medical decision making narrative: Patient presents to the ER complaining of left-sided chest pain. Patient placed on cardiac cath tech, continuous pulse ox, and IV access obtained. EKG, chest x-ray, labs, aspirin 325 mg p.o. ordered. Patient is without chest pain currently and her heart score is 5. 1638: Paged hospitalist for chest pain obs admission. CP free while in ER. Medical Screen Exam Complete: Yes Emergency Medical Condition: Yes Lab Data Result diagrams: 06/09/18 15:25 06/09/18 15:25 Lab Results 06/09/18 06/09/18 06/09/18 Range/Units 15:25 15:25 15:25 CBC w Diff Auto diff final WBC 5.3 (4.0-11.0) th/mm3 RBC 4.70 (4.00-5.30) mil/mm3 Hgb 12.0 (11.6-15.3) gm/dL Hct 37.5 (35.0-46.0) % MCV 79.6 L (80.0-100.0) fL MCH 25.5 L (27.0-34.0) pg MCHC 32.0 (32.0-36.0) % RDW 16.1 (11.6-17.2) % Plt Count 250 (150-450) th/mm3 MPV 8.1 (7.0-11.0) fL Neut % (Auto) 62.3 (16.0-70.0) % Lymph % (Auto) 24.2 (9.0-44.0) % [place] % (Auto) 9.8 H (0.0-8.0) % Eos % (Auto) 2.8 (0.0-4.0) % Baso % (Auto) 0.9 (0.0-2.0) % Neut # (Auto) 3.4 (1.8-7.7) th/mm3 Lymph # (Auto) 1.3 (1.0-4.8) th/mm3 [place] # (Auto) 0.5 (0.0-0.9) th/mm3 Eos # (Auto) 0.1 (0.0-0.4) th/mm3 Baso # (Auto) 0.0 (0.0-0.2) th/mm3 WBC Differential . Differential Comment . PT 10.4 (9.8-11.6) sec INR 1.0 Ratio APTT 25.2 (23.4-31.7) sec Sodium 144 (136-145) meq/L Potassium 3.6 (3.5-5.1) meq/L Chloride 108 H (98-107) meq/L Carbon Dioxide 30.3 (21.0-32.0) meq/L Anion Gap 6 (5-15) meq/L BUN 8 (7-18) mg/dL Creatinine 0.81 (0.50-1.00) mg/dL Estimated GFR 75 L (>89) mL/min Random Glucose 87 (74-106) mg/dL Calcium 8.2 L (8.5-10.1) mg/dL Magnesium 1.9 (1.5-2.5) mg/dL Total Bilirubin 0.2 (0.2-1.0) mg/dL AST 18 (15-37) U/L ALT 21 (10-53) U/L Alkaline Phosphatase 92 (45-117) U/L Troponin I (0.02-0.05) ng/mL B-Natriuretic Peptide (0-100) pg/mL Total Protein 6.6 (6.4-8.2) g/dL Albumin 3.0 L (3.4-5.0) g/dL 06/09/18 06/09/18 Range/Units 15:25 15:25 CBC w Diff WBC (4.0-11.0) th/mm3 RBC (4.00-5.30) mil/mm3 Hgb (11.6-15.3) gm/dL Hct (35.0-46.0) % MCV (80.0-100.0) fL MCH (27.0-34.0) pg MCHC (32.0-36.0) % RDW (11.6-17.2) % Plt Count (150-450) th/mm3 MPV (7.0-11.0) fL Neut % (Auto) (16.0-70.0) % Lymph % (Auto) (9.0-44.0) % [place] % (Auto) (0.0-8.0) % Eos % (Auto) (0.0-4.0) % Baso % (Auto) (0.0-2.0) % Neut # (Auto) (1.8-7.7) th/mm3 Lymph # (Auto) (1.0-4.8) th/mm3 [place] # (Auto) (0.0-0.9) th/mm3 Eos # (Auto) (0.0-0.4) th/mm3 Baso # (Auto) (0.0-0.2) th/mm3 WBC Differential Differential Comment PT (9.8-11.6) sec INR Ratio APTT (23.4-31.7) sec Sodium (136-145) meq/L Potassium (3.5-5.1) meq/L Chloride (98-107) meq/L Carbon Dioxide (21.0-32.0) meq/L Anion Gap (5-15) meq/L BUN (7-18) mg/dL Creatinine (0.50-1.00) mg/dL Estimated GFR (>89) mL/min Random Glucose (74-106) mg/dL Calcium (8.5-10.1) mg/dL Magnesium (1.5-2.5) mg/dL Total Bilirubin (0.2-1.0) mg/dL AST (15-37) U/L ALT (10-53) U/L Alkaline Phosphatase (45-117) U/L Troponin I Less than 0.02 L (0.02-0.05) ng/mL B-Natriuretic Peptide 27 (0-100) pg/mL Total Protein (6.4-8.2) g/dL Albumin (3.4-5.0) g/dL Imaging Data Radiologist's impression: Chest X-Ray 06/09/18 15:12 CONCLUSION: No acute cardiopulmonary disease. ECG Data Attestation: I personally reviewed and interpreted this ECG as follows: (Rate 84 , normal axis, QTC 432,normal intervals) Discharge Plan Discharge Disposition Patient Disposition: 30 Still Patient Discharge Condition Condition: Stable Discharge Details Diagnosis: Chest pain Physicians Team ED Provider: Sue Duque Primary Care Provider: German Sutherland Rxs /Orders / Referrals /Forms Prescriptions: No Action Aspir-81 81 mg PO DAILY RF: 0 atorvastatin 80 mg Tablet 80 mg PO DAILY RF: 0 isosorbide mononitrate 30 mg Tablet Extended Release 24 Hr 30 mg PO DAILY RF: 0 clopidogrel 75 mg Tablet 75 mg PO DAILY RF: 0 amlodipine 5 mg Tablet 5 mg PO DAILY RF: 0 montelukast 10 mg Tablet 10 mg PO QPM RF: 0 escitalopram oxalate 20 mg Tablet 20 mg PO DAILY RF: 0 omeprazole 20 mg Tablet,Delayed Release (Dr/Ec) 20 mg PO DAILY RF: 0 Discharge Instructions Patient Printed Instructions: Chest Pain (ED) Status ED Status: With Doctor
--- NOTE | 2018-06-09 15:53 | XR ---
EXAM DATE: 06/09/2018 3:47 PM EST AGE/SEX: 48 years / Female INDICATIONS: Left side chest pain. CLINICAL DATA: This is the patient's initial encounter. Patient reports that signs and symptoms have been present for 1 day and indicates a pain score of 5/10. MEDICAL/SURGICAL HISTORY: None. Coronary artery stent. COMPARISON: [facility] [place], CHEST PA & LAT, 08/26/2017. . FINDINGS: A single AP view of the chest demonstrates the lungs to be symmetrically aerated without evidence of mass, infiltrate or effusion. The cardiomediastinal contours are unremarkable. Osseous structures a re intact. CONCLUSION: No acute cardiopulmonary disease. Electronically signed by: Delio Beard MD 06/09/2018 3:52 PM EST
[2018-06-09 15:56] LABS: Chloride 108 meq/L (98-107); Potassium 3.6 meq/L (3.5-5.1); Sodium 144 meq/L (136-145)
[2018-06-09 16:01] LABS: Calcium 8.2 mg/dL (8.5-10.1)
[2018-06-09 16:02] LABS: Activated Partial Thrombo Time 25.2 sec (23.4-31.7); Anion Gap 6 meq/L (5-15); Blood Urea Nitrogen 8 mg/dL (7-18); Carbon Dioxide 30.3 meq/L (21.0-32.0); Glucose,Random 87 mg/dL (74-106); Magnesium 1.9 mg/dL (1.5-2.5); Prothrombin Time 10.4 sec (9.8-11.6)
[2018-06-09 16:05] LABS: Alanine Aminotransferase 21 U/L (10-53); Aspartate Aminotransferase 18 U/L (15-37); Glomerular Filtration Rate 75 mL/min (>89)
[2018-06-09 16:06] LABS: Total Protein 6.6 g/dL (6.4-8.2)
[2018-06-09 16:08] LABS: Alkaline Phosphatase 92 U/L (45-117)
[2018-06-09] MEDS ORDERED: Morphine Inj 4 MG/ML Vial IV.PUSH PRN (17:12)
[2018-06-09] MEDS ORDERED: Acetaminophen 500 MG Tablet PO PRN (17:12)
[2018-06-09] MEDS ORDERED: Montelukast 10 MG Tablet PO SCH (18:00)
--- NOTE | 2018-06-09 18:10 | P.HP ---
History of Present Illness Primary Care Physician: German Sutherland MD, R3 Chief Complaint: chest pain History of Present Illness: This is a pleasant 48-year-old female patient with a known medical history of CAD with previous cardiac stent, GERD, hyperlipidemia and hypertension who presented to the ED with complaints of chest pain. Patient states that she was taking a shower when she developed a left-sided chest pain, that was pressure- like in nature, was intermittent lasting 2-3 seconds in duration and went away on its own. She states that over the course of the past few hours this chest pain has been intermittent, without any known aggravating or alleviating factors. She does admit to associated shortness of breath and nausea with the pain, denies any vomiting or sweating. Patient does have a history of CAD, two years ago she underwent a cardiac cath by Dr. Elizabeth and at that time a cardiac stent was placed. Patient states that her symptoms at that time were similar to her symptoms today. She currently follows with Dr. Sherman, cardiology , her last cardiac cath was in November 2016, at that time it showed mild restenosis of the proximal LAD, EF was 65% at that time. Patient has an appointment with him in July. At the time of assessment patient states that the pain has much improved with the use of aspirin in the ED. Telemetry her rhythm is sinus rhythm, EKG without any ST changes to indicate any ischemia. Initial troponin flat. She will be admitted to the chest pain center for observation will likely undergo a cardiac stress test in the morning. - Diagnosis (1) Chest pain Review of Systems All other systems reviewed negative except as stated in HPI PMFSH - History History Provided By: Patient - Medical History Medical History: Medical History (Last Reviewed 06/09/18 @ 18:05 by Darlin Walker) History of asthma History of depression History of gastroesophageal reflux (GERD) History of high cholesterol History of hypertension - Surgical History Surgical History: Surgical History (Last Reviewed 06/09/18 @ 18:05 by Darlin Walker) History of appendectomy History of cholecystectomy History of heart artery stent History of partial hysterectomy History of repair of hiatal hernia - Family History Family History: Family History (Last Updated 06/09/18 @ 18:05 by Darlin Walker) Other Family history non-contributory - Social History I have reviewed the patient's Social History: Yes - Tobacco History Smoking Status: Former smoker - Alcohol History How Often Do You Have a Drink Containing Alcohol: Monthly or less - Substance Use History Substance History: No History of Abuse - Travel History Recent Travel in the [place] Within the Last 8 Weeks: No Recent Travel Out of the Country Within the Last 8 Weeks: No - Immunization History Tetanus Immunization: >5 Years Medications and Allergies Active Medications: Active Medications Acetaminophen (Tylenol) 500 mg PO Q4H PRN PRN Reason: HEADACHE Amlodipine Besylate (Norvasc) 5 mg PO DAILY [facility] Aspirin (Aspirin) 325 mg PO DAILY [facility] Atorvastatin Calcium (Lipitor) 80 mg PO DAILY [facility] Clopidogrel Bisulfate (Plavix) 75 mg PO DAILY [facility] Escitalopram Oxalate (Lexapro) 20 mg PO DAILY [facility] Isosorbide Mononitrate (Imdur) 30 mg PO DAILY@0700 [facility] Montelukast Sodium (Singulair) 10 mg PO QPM [facility] Morphine Sulfate (Morphine Inj) 2 mg IV.PUSH Q4H PRN PRN Reason: PAIN SCALE 8 TO 10 Nitroglycerin (Nitrostat Sl) 0.4 mg SL Q5M PRN PRN Reason: CHEST PAIN Ondansetron HCl (Zofran Inj) 4 mg IV.PUSH Q6H PRN PRN Reason: NAUSEA Pantoprazole Sodium (Protonix) 20 mg PO DAILY [facility] Sodium Chloride (Ns Flush) 2 ml IV.FLUSH BID [facility] Sodium Chloride (Ns Flush) 2 ml IV.FLUSH PRN PRN PRN Reason: FLUSH AFTER USING IV ACCESS Allergies Allergy/AdvReac Type Severity Reaction Status Date / Time No Known Allergies Allergy Verified 06/09/18 14:47 Home Medications Medication Instructions Recorded Confirmed Type Aspir-81 81 mg PO DAILY 06/09/18 06/09/18 History amlodipine 5 mg PO DAILY 06/09/18 06/09/18 History atorvastatin 80 mg PO DAILY 06/09/18 06/09/18 History clopidogrel 75 mg PO DAILY 06/09/18 06/09/18 History escitalopram oxalate 20 mg PO DAILY 06/09/18 06/09/18 History isosorbide mononitrate 30 mg PO DAILY 06/09/18 06/09/18 History montelukast 10 mg PO QPM 06/09/18 06/09/18 History omeprazole 20 mg PO DAILY 06/09/18 06/09/18 History Exam Vital signs: Vital Signs 06/09/18 14:42 06/09/18 15:50 Temperature 98.5 F Pulse Rate 88 73 Respiratory Rate 20 16 Blood Pressure 143/85 H 122/75 Pulse Oximetry 98 96 Intake & Output 06/08/18 06/09/18 06/09/18 18:59 06:59 18:59 Weight 90 kg Narrative: GENERAL: Well-developed, well-nourished patient in [facility]. SKIN: Warm and dry. No rash. HEAD: Normocephalic. Atraumatic. EYES: Pupils equal and round. No scleral icterus. No injection or drainage. ENT: No nasal bleeding or discharge. Mucous membranes pink and moist. NECK: Supple. Trachea midline. CARDIOVASCULAR: Regular rate and rhythm. S1, S2 noted. No murmur appreciated. No chest pain to palpation RESPIRATORY: No accessory muscle use. Clear to auscultation. Breath sounds equal bilaterally. GASTROINTESTINAL: Abdomen soft, non-tender, nondistended. Normoactive bowel sounds x4. MUSCULOSKELETAL: No obvious deformities. Extremities without clubbing, cyanosis , or edema. NEUROLOGICAL: Awake and alert. No obvious cranial nerve deficits. Motor grossly within normal limits. 5/5 muscle strength in bilateral upper and lower extremities. Normal speech. PSYCHIATRIC: Appropriate mood and affect; insight and judgment normal. Results - Labs CBC & Chem 7: 06/09/18 15:25 06/09/18 15:25 Labs: Laboratory Results - last 24 hr 06/09/18 06/09/18 06/09/18 15:25 15:25 15:25 CBC w Diff Auto diff final WBC 5.3 RBC 4.70 Hgb 12.0 Hct 37.5 MCV 79.6 L MCH 25.5 L MCHC 32.0 RDW 16.1 Plt Count 250 MPV 8.1 Neut % (Auto) 62.3 Lymph % (Auto) 24.2 Carver % (Auto) 9.8 H Eos % (Auto) 2.8 Baso % (Auto) 0.9 Neut # (Auto) 3.4 Lymph # (Auto) 1.3 Carver # (Auto) 0.5 Eos # (Auto) 0.1 Baso # (Auto) 0.0 WBC Differential . Differential Comment . PT 10.4 INR 1.0 APTT 25.2 Sodium 144 Potassium 3.6 Chloride 108 H Carbon Dioxide 30.3 Anion Gap 6 BUN 8 Creatinine 0.81 Estimated GFR 75 L Random Glucose 87 Calcium 8.2 L Magnesium 1.9 Total Bilirubin 0.2 AST 18 ALT 21 Alkaline Phosphatase 92 Troponin I B-Natriuretic Peptide Total Protein 6.6 Albumin 3.0 L 06/09/18 06/09/18 15:25 15:25 CBC w Diff WBC RBC Hgb Hct MCV MCH MCHC RDW Plt Count MPV Neut % (Auto) Lymph % (Auto) Carver % (Auto) Eos % (Auto) Baso % (Auto) Neut # (Auto) Lymph # (Auto) Carver # (Auto) Eos # (Auto) Baso # (Auto) WBC Differential Differential Comment PT INR APTT Sodium Potassium Chloride Carbon Dioxide Anion Gap BUN Creatinine Estimated GFR Random Glucose Calcium Magnesium Total Bilirubin AST ALT Alkaline Phosphatase Troponin I Less than 0.02 L B-Natriuretic Peptide 27 Total Protein Albumin - Imaging Impressions Chest X-Ray 06/09/18 15:12 CONCLUSION: No acute cardiopulmonary disease. Caprini VTE Risk Assessment Caprini VTE Risk Assessment: No/Low Risk (score <= 1) Caprini Risk Assessment Model: Point Value = 1 Point Value = 2 Point Value = 3 Point Value = 5 Age 41-60 Minor surgery BMI > 25 kg/m2 Swollen legs Varicose veins or History of unexplained or recurrent spontaneous Oral contraceptives or hormone replacement Sepsis (< 1 month) Serious lung disease, including pneumonia (< 1 month) Abnormal pulmonary function Acute myocardial infarction Congestive heart failure (< 1 month) History of inflammatory bowel disease Medical patient at bed rest Age 61-74 Arthroscopic surgery Major open surgery (> 45 min) Laparoscopic surgery (> 45 min) Malignancy Confined to bed (> 72 hours) Immobilizing plaster cast Central venous access Age >= 75 History of VTE Family history of VTE Factor V Leiden Prothrombin [id number] Lupus anticoagulant Anticardiolipin antibodies Elevated serum homocysteine Heparin-induced thrombocytopenia Other congenital or acquired thrombophilia Stroke (< 1 month) Elective arthroplasty Hip, pelvis, or leg fracture Acute spinal cord injury (< 1 month) Prophylaxis Regimen: Total Risk Factor Score Risk Level Prophylaxis Regimen 0-1 Low Early ambulation 2 Moderate Order ONE of the following: *Sequential Compression Device (SCD) *Heparin 5000 units SQ BID 3-4 Higher Order ONE of the following medications: *Heparin 5000 units SQ TID *Enoxaparin/Lovenox 40 mg SQ daily (WT < 150 kg, CrCl > 30 mL/min) *Enoxaparin/Lovenox 30 mg SQ daily (WT < 150 kg, CrCl > 10-29 mL/min) *Enoxaparin/Lovenox 30 mg SQ BID (WT < 150 kg, CrCl > 30 mL/min) AND/OR *Sequential Compression Device (SCD) 5 or more Highest Order ONE of the following medications: *Heparin 5000 units SQ TID (Preferred with Epidurals) *Enoxaparin/Lovenox 40 mg SQ daily (WT < 150 kg, CrCl > 30 mL/min) *Enoxaparin/Lovenox 30 mg SQ daily (WT < 150 kg, CrCl > 10-29 mL/min) *Enoxaparin/Lovenox 30 mg SQ BID (WT < 150 kg, CrCl > 30 mL/min) AND *Sequential Compression Device (SCD) Assessment and Plan - Assessment (1) Chest pain Code(s): R07.9 - Chest pain, unspecified Status: Acute - Plan This is a 48-year-old female patient with: Chest pain rule out ACS versus other musculoskeletal versus other etiology -Patient has been admitted to the chest pain center for observation. -Serial EKGs and serial troponins have been ordered for ruling out ACS purposes. Initial troponin flat. Will follow trend. -EKG reviewed, controlled heart rate with no ST changes to indicate any ischemia. -Continue on cardiac telemetry, monitor for any arrhythmias. -Chest x-ray reviewed, no acute cardiopulmonary disease noted. -Patient's risk factors include hyperlipidemia as well as previous CAD and stent placement. -If ACS ruled out with serial EKGs and serial troponins, patient will likely undergo a cardiac stress test to further rule out any ischemia. -N.p.o. after midnight. -Further hospitalization treatment plan will depend on cardiac stress test results. -Patient is stable at this time and agreeable to plan. DVT prophylaxis: SCDs. (1) Chest pain Qualifiers: Chest pain type: unspecified Qualified Code(s): R07.9 - Chest pain, unspecified
[2018-06-09 18:52] LABS: Creatine Kinase 122 U/L (26-192)
--- NOTE | 2018-06-09 19:08 | ECG ---
Date Performed: 06/09/2018 Time Performed: 14:35:37 PTAGE: 48 years EKG: Sinus rhythm POSSIBLE LEFT ATRIAL ENLARGEMENT POSSIBLE RIGHT VENTRICULAR CONDUCTION DELAY NONSPECIFIC T-WAVE ABNO RMALITY BORDERLINE ECG No significant change from prior electrocardiogram. NO PREVIOUS TRACING DOCTOR: Jamie Jay Interpretating Date/Time 06/09/2018 19:06:37
[2018-06-09 20:22] LABS: Creatine Kinase 91 U/L (26-192)
[2018-06-10 04:44] VITALS: O2SAT 97
--- NOTE | 2018-06-10 05:22 | ECG ---
Date Performed: 06/09/2018 Time Performed: 17:51:24 PTAGE: 48 years EKG: Sinus rhythm NORMAL ECG Compared to prior electrocardiogram, rate has decreased . PREVIOUS TRACING : 08/26/2017 21.35 DOCTOR: Jamie Jay Interpretating Date/Time 06/10/2018 05:20:54
[2018-06-10] MEDS ORDERED: Isosorbide Mononitrate 30 MG ER 24HR Tablet (Imdur) PO SCH (07:00)
[2018-06-10] MEDS ORDERED: Aspirin 325 MG Tablet PO SCH (09:00)
[2018-06-10] MEDS ORDERED: Pantoprazole Sodium 20 MG DR Tablet PO SCH (09:00)
[2018-06-10] MEDS ORDERED: amLODIPine 5 MG Tablet PO SCH (09:00)
[2018-06-10] MEDS ORDERED: Regadenoson Inj 0.4 MG/5 ML Syringe IV.PUSH ONE (10:41)
--- NOTE | 2018-06-10 11:59 | P.PNIM ---
Subjective Interval history: 48-year-old female who is seen and examined today for follow-up on chest pain. Patient still have an reproducible palpable chest wall tenderness mainly over the sternum. Patient denies any new complaints. Vital signs are stable. Patient remains afebrile. Physical Exam Vital signs: Vital Signs 06/09/18 14:42 06/09/18 15:50 06/09/18 18:10 Temperature 98.5 F Pulse Rate 88 73 Respiratory Rate 20 16 Blood Pressure 143/85 H 122/75 Pulse Oximetry 98 96 96 06/09/18 20:00 06/10/18 00:00 06/10/18 04:00 Temperature 98.5 F 98.8 F 98.1 F Pulse Rate 63 63 71 Respiratory Rate 18 18 18 Blood Pressure 110/67 122/72 126/77 Pulse Oximetry 98 98 97 06/10/18 08:07 06/10/18 08:31 Temperature 97.5 F L Pulse Rate 76 Respiratory Rate 16 Blood Pressure 115/64 Pulse Oximetry 97 97 Intake & Output 06/09/18 06/10/18 06/10/18 18:59 06:59 18:59 Intake Total 440 / 440 Balance 440 / 440 Weight 90 kg 88.9 kg Intake: Oral 440 / 440 Other: # Voids 3 Narrative: GENERAL: Well-developed, well-nourished, in no acute distress. alert and orientated HEENT: Head is normocephalic without any lesions or masses noted. Facial features are symmetric. Eyes: Extraocular muscles are intact. Conjunctivae were clear. NECK: Supple without any masses. Trachea midline no deviation. No JVD, CARDIAC: Regular rhythm, regular rate. S1/S2 are heard. No murmurs gallops or rubs. Patient has reproducible sternum pain on palpation LUNGS: Clear to auscultation bilaterally. No wheeze, rhonchi or rales. No use of accessory muscles on inspiration or expiration. ABDOMEN: Soft, nontender. Nondistended. Bowel sounds heard in all 4 quadrants. No organomegaly or masses. Negative rebound, negative guarding EXTREMITIES: No edema, pulses are equal bilaterally. No cyanosis or clubbing NEUROLOGY: Mood and affect appear appropriate. Cranial nerves II through XII grossly intact. Moving all extremities, speech is clear Results - Labs CBC & Chem 7: 06/09/18 15:25 06/09/18 15:25 Laboratory Results - last 24 hr 06/09/18 06/09/18 06/09/18 15:25 15:25 15:25 CBC w Diff Auto diff final WBC 5.3 RBC 4.70 Hgb 12.0 Hct 37.5 MCV 79.6 L MCH 25.5 L MCHC 32.0 RDW 16.1 Plt Count 250 MPV 8.1 Neut % (Auto) 62.3 Lymph % (Auto) 24.2 [place] % (Auto) 9.8 H Eos % (Auto) 2.8 Baso % (Auto) 0.9 Neut # (Auto) 3.4 Lymph # (Auto) 1.3 [place] # (Auto) 0.5 Eos # (Auto) 0.1 Baso # (Auto) 0.0 WBC Differential . Differential Comment . PT 10.4 INR 1.0 APTT 25.2 Sodium 144 Potassium 3.6 Chloride 108 H Carbon Dioxide 30.3 Anion Gap 6 BUN 8 Creatinine 0.81 Estimated GFR 75 L Random Glucose 87 Calcium 8.2 L Magnesium 1.9 Total Bilirubin 0.2 AST 18 ALT 21 Alkaline Phosphatase 92 Total Creatine Kinase Troponin I B-Natriuretic Peptide Total Protein 6.6 Albumin 3.0 L 06/09/18 06/09/18 06/09/18 15:25 15:25 18:15 CBC w Diff WBC RBC Hgb Hct MCV MCH MCHC RDW Plt Count MPV Neut % (Auto) Lymph % (Auto) [place] % (Auto) Eos % (Auto) Baso % (Auto) Neut # (Auto) Lymph # (Auto) [place] # (Auto) Eos # (Auto) Baso # (Auto) WBC Differential Differential Comment PT INR APTT Sodium Potassium Chloride Carbon Dioxide Anion Gap BUN Creatinine Estimated GFR Random Glucose Calcium Magnesium Total Bilirubin AST ALT Alkaline Phosphatase Total Creatine Kinase 122 Troponin I Less than 0.02 L Less than 0.02 L B-Natriuretic Peptide 27 Total Protein Albumin 06/09/18 19:50 CBC w Diff WBC RBC Hgb Hct MCV MCH MCHC RDW Plt Count MPV Neut % (Auto) Lymph % (Auto) [place] % (Auto) Eos % (Auto) Baso % (Auto) Neut # (Auto) Lymph # (Auto) [place] # (Auto) Eos # (Auto) Baso # (Auto) WBC Differential Differential Comment PT INR APTT Sodium Potassium Chloride Carbon Dioxide Anion Gap BUN Creatinine Estimated GFR Random Glucose Calcium Magnesium Total Bilirubin AST ALT Alkaline Phosphatase Total Creatine Kinase 91 Troponin I Less than 0.02 L B-Natriuretic Peptide Total Protein Albumin - Imaging Impressions Chest X-Ray 06/09/18 15:12 CONCLUSION: No acute cardiopulmonary disease. Assessment and Plan - Assessment (1) Chest pain Code(s): R07.9 - Chest pain, unspecified Status: Acute - Plan Chest pain, atypical -Patient with known history of coronary disease with stenting -Patient has been ruled out for acute coronary event with serial cardiac enzymes remain negative -Serial EKGs were reviewed by myself which shows sinus rhythm without any changes -Myocardial perfusion study was performed which indicated no signs of ischemia, low risk -Given that the tenderness is reproducible on palpation, likely patient with costochondritis/intercostal-itis. Recommend to the patient the use of ibuprofen /Motrin for pain control. Hypertension, coronary disease, hyperlipidemia -Home medications have been continued DVT prevention -Sequential compression devices Discharge Planning: Discharge home in stable condition Activity: Ad jey. Diet: Healthy heart diet Medication per medication reconciliation Follow-up with primary medical doctor in 1 week (1) Chest pain Qualifiers: Chest pain type: unspecified Qualified Code(s): R07.9 - Chest pain, unspecified
[2018-06-10 12:06] VITALS: BP 138/89; PULSE 85; RESP 14; TEMP 98.2
--- NOTE | 2018-06-10 12:37 | NM ---
EXAM DATE: 06/10/2018 11:54 AM EST AGE/SEX: 48 years / Female INDICATIONS:Angina. Coronary artery disease Left sided chest pain. CLINICAL DATA: This is the patient's initial encounter. Patient reports that signs and symptoms have been present for 1 day and indicates a pain score of 3/10. MEDICAL/SURGICAL HISTORY: Asthma. Hypertension. Coronary artery stent. Hysterectomy. Inguina l hernia repair. COMPARISON: No prior exams available for comparison. DOSE: 8.1 mCi Tc 99m Myoview at rest 26.5 mCi [id number] at stress 0.4 mg Lexiscan STRESS SYMPTOMS: Nausea. EJECTION FRACTION: 60 % TECHNIQUE: The patient underwent pharmacologic stress with infusion of prescribed dose. Continuous ECG tracing was monitored during stress. Gated SPECT imaging was performed after stress and conventi onal SPECT imaging was performed at rest. The examination was performed on a SPECT/CT scanner, both attenuation and non-corrected datasets were reviewed. FINDINGS: Distribution: The maximum perfused segment at stress is in the anterior lateral wall. Perfusion Study: The pattern of perfusion at stress is within normal limits. Is a summed stress s core of 2. Gated Study: There are intact wall motion and wall thickening without hypokinetic or dyskinetic segm ents. The ejection fraction is calculated at 60%. RISK CATEGORY: Low (<1% Annual Motality Rate) CONCLUSION: 1. Normal wall motion and calculated ejection fraction. 2. No fixed or reversible wall defects to suggest ischemia or infarction. Electronically signed by: Michael Hannah MD 06/10/2018 12:36 PM EST
--- NOTE | 2018-06-10 16:47 | TR ---
Date Performed: 06/10/2018 Time Performed: 11:00:00 DOCTOR: Myra Purdy DRUG LIST: CLINICAL HISTORY: REASON FOR TEST: REASON FOR ENDING: OBSERVATION: CONCLUSION: Lexiscan stress test was performed under standard four minute protocol. Radionuclid e was injected one minute prior to ending the test. No electrocardiographic abormalities were present to suggest ischemia. Nuclear imaging and interpretation are pending. COMMENTS: Lexiscan stress test was performed under standard four minute protocol. Radionuclide was injected one minute prior to ending the test. No electrocardiographic abormalities were present t o suggest ischemia. Nuclear imaging and interpretation are pending.
== END 2018-06-10 14:06 | disposition home or self-care (01) ==
LOC: PHEDA 14:30 → PHED 14:30 → PHEDA 18:20 → PH3 18:32
PROVIDERS: ADMIT Hospitalist; ATTEND Hospitalist